=== PATIENT | male | born 1940 ===

== ENCOUNTER 2021-04-15 18:44 | Emergency (ER) | payer OTHER ==
[~2021-04-15] VITALS: Ht 177.8 cm; Wt 99.8 kg
--- NOTE | 2021-04-15 19:28 | NUR ---
Lab at bedside.
[2021-04-15 19:54] LABS: HEMATOCRIT 34.8 % (36.7-47.1); MEAN CORPUSCULAR VOLUME 93.4 fL (73.0-96.2); PLATELET COUNT (AUTO) 299 K/uL (152-348)
[2021-04-15 19:57] LABS: CREATININE 1.3 mg/dL (0.6-1.3)
[2021-04-15 20:03] LABS: BILIRUBIN,DIRECT 0.1 mg/dL (0.0-0.2); BILIRUBIN,TOTAL 0.4 mg/dL (0.2-1.0); TOTAL PROTEIN, SERUM 5.8 g/dL (6.4-8.2)
[2021-04-15] MEDS ORDERED: POTASSIUM CHLORIDE 20 MEQ POWDER PACKET PO ONE (20:15)
[2021-04-15 20:32] LABS: MAGNESIUM 1.8 mg/dL (1.8-2.4); PHOSPHOROUS 1.5 mg/dL (2.5-4.9)
[2021-04-15] MEDS ORDERED: POTASSIUM CHLORIDE 20 MEQ POWDER PACKET ONE (20:32)
[2021-04-15 20:46] LABS: THYROID STIMULATING HORMONE 6.64 mIU/mL (0.358-3.740)
[2021-04-15 21:49] LABS: *BLOOD, URINE 2+ (NEGATIVE); *CLARITY,URINE CLOUDY (CLEAR); *COLOR,URINE YELLOW (YELLOW); *KETONES,URINE 1+ (NEGATIVE); LEUKOCYTE ESTERASE ,URINE 3+ (NEGATIVE); NITRITE, URINE NEGATIVE (NEGATIVE); UGLUCOSE NEGATIVE (NEGATIVE)
[2021-04-15 21:59] LABS: *BILIRUBIN,URIN 2+ (NEGATIVE)
[2021-04-15 22:01] LABS: BACTERIA,URINE MANY /HPF (NONE SEEN); MUCUS,URINE FEW /LPF (0-FEW); RBC,URINE TNTC /HPF (0-3); SQUAMOUS EPITHELIAL CELL,UR FEW /HPF (NONE SEEN); URINE AMORPHOUS PHOSPHATES MANY /HPF; WBC,URINE TNTC /HPF (0-3)
[2021-04-15] MEDS ORDERED: CEFEPIME HCL 2 G in IV DEXTROSE 5% 100 ML IV ONE (22:15)
--- NOTE | 2021-04-15 22:31 | NUR ---
[facility] CALLED AND WILL CALL BACK FOR MD TO MD CALL.
--- NOTE | 2021-04-15 22:35 | NUR ---
Morris RAMSAY connected to [facility]
[2021-04-15] MEDS ORDERED: CEFEPIME HCL 1 G VIAL ONE (22:39)
--- NOTE | 2021-04-15 23:20 | NUR ---
being taken down for CT.
--- NOTE | 2021-04-15 23:38 | NUR ---
Pt returned from CT.
--- NOTE | 2021-04-16 | NUR ---
Assisted pt to use urinal, denies pain while urinating.
--- NOTE | 2021-04-16 01:10 | NUR ---
[facility] called spoke with Jamey Pt accepted to [facility]------ [phone] ETA 3AM [facility]
--- NOTE | 2021-04-16 01:15 | NUR ---
ATTEMPTED TO CALL (RENETTA VYAS) TO NOTIFY THAT PT IS BEING TRANSFERED TO ER, NO ANSWER AND UNABLE TO LEAVE [facility].
--- NOTE | 2021-04-16 03:30 | NUR ---
Patient is resting comfortably in bed with eyes closed. Breathing even and unlabored.
--- NOTE | 2021-04-16 03:40 | NUR ---
gave report to [facility] spoke with
--- NOTE | 2021-04-16 03:45 | NUR ---
Patient Tranfers to outside Facility Physician:Aldair Location: [facility]
--- NOTE | 2021-04-16 03:47 | NUR ---
Lore at bedside, [address] at bedside to order picker pt, Yoanna from [facility] made aware.
== END 2021-04-16 03:50 | disposition short-term general hospital (02) ==
LOC: ER 18:54
DX: I13.2 Hypertensive heart and chronic kidney disease with heart failure and with stage 5 chronic kidney disease, or end stage renal disease (principal); I50.1 Left ventricular failure, unspecified; N18.6 End stage renal disease; E11.22 Type 2 diabetes mellitus with diabetic chronic kidney disease; Z99.2 Dependence on renal dialysis; Z79.899 Other long term (current) drug therapy; R00.0 Tachycardia, unspecified; E87.6 Hypokalemia; N39.0 Urinary tract infection, site not specified; E03.9 Hypothyroidism, unspecified; D64.9 Anemia, unspecified; E83.39 Other disorders of phosphorus metabolism; Z20.822 Contact with and (suspected) exposure to COVID-19; Z95.0 Presence of cardiac pacemaker
CPT/HCPCS: 36415; 70450; 71045; 80048; 80076; 81001; 82550; 82962; 83605; 83690; 83735; 84100; 84443; 84484; 85025; 85730; 86850; 86900; 86901; 87040 ×2; 87086; 87426; 93005; 96374; 99285; J0692; J7060; 70030-TC; C1758